=== PATIENT | female | born 1975 | race Caucasian/White ===

== ENCOUNTER 2018-05-03 16:09 | Observation (INO) ==
[2018-05-03] MEDS ORDERED: Isovue-370 500 ML INFUS..BTL IV ONE (16:54)
[2018-05-03] MEDS ORDERED: Ondansetron 4 MG/2 ML VIAL IVP ONE (16:55)
[2018-05-03] MEDS ORDERED: *HR* FentaNYL (PF) 100 MCG/2 ML VIAL IVP ONE (16:55)
[2018-05-03] MEDS ORDERED: Piperacillin/Tazobactam 3.375 GM in 0.9 % Sodium Chloride Mini Bag 100 ML IVPB ONE (16:59)
[2018-05-03 17:13] LABS: Basophils % 0.2 %; Hematocrit 43.9 % (35.3-44.9); Hemoglobin 13.9 g/dL (11.5-15.4); Immature Granulocytes % 0.6 % (0-4); Lymphocytes # 0.3 K/mcL (0.6-4.6); Lymphocytes % 2.3 %; Mean Corpuscular HGB Conc 31.7 g/dL (31.6-35.5); Mean Corpuscular Hemoglobin 25.5 pg (28.0-33.3); Mean Corpuscular Volume 80.6 fL (83.0-100.0); Monocytes # 0.4 K/mcL (0.0-1.3); Monocytes % 3.8 %; Neutrophils # 10.2 K/mcL (1.6-8.9); Platelet Count 361 K/mcL (140-400); Red Blood Count 5.45 M/mcL (3.82-4.97); Red Cell Distribution Width 14.3 % (11.5-14.5); Segmented Neutrophils % 93.1 %
[2018-05-03] MEDS: 0.9 % Sodium Chloride 1,000 ML IVC SCH ×3 (17:14→22:50)
[2018-05-03 17:38] LABS: Alanine Aminotransferase 11 Units/L (7-52); Albumin 4.1 g/dL (3.5-5.7); Albumin/Globulin Ratio 1.2 (1.1-2.2); Alkaline Phosphatase 101 Units/L (34-104); Aspartate Amino Transferase 9 Units/L (13-39); BUN/Creatinine Ratio 16 (6-26); Bilirubin,Direct 0.2 mg/dL (0.0-0.2); Bilirubin,Indirect 0.6 mg/dL (0.0-1.2); Bilirubin,Total 0.8 mg/dL (0.3-1.0); Blood Urea Nitrogen 12 mg/dL (6-20); Calcium 9.5 mg/dL (8.6-10.3); Carbon Dioxide 26 mEq/L (23-29); Chloride 101 mEq/L (98-107); Globulin 3.4 g/dL (2.4-3.5); Glucose 174 mg/dL (70-105); Lipase < 3 Units/L (11-82); Osmolality,Calculated 288 (280-300); Potassium 4.2 mEq/L (3.5-5.1); Sodium 137 mEq/L (136-145); Total Protein 7.5 g/dL (6.4-8.9); eGFR For African Americans > 60 (> 60); eGFR For Non-African Americans > 60 (> 60)
[2018-05-03] MEDS ORDERED: Pantoprazole 40 MG VIAL IVP ONE (17:40)
--- NOTE | 2018-05-03 17:46 | Emergency Department Note ---
Disposition Clinical Impression: History of Crohn's disease, Colitis Abdominal pain Qualifiers: Abdominal location: unspecified location Qualified Code(s): R10.9 - Unspecified abdominal pain Sepsis Qualifiers: Sepsis type: sepsis due to unspecified organism Qualified Code(s): A41.9 - Sepsis, unspecified organism Disposition: Admitted As Inpatient Condition: Fair Referrals: Kathie Dodge MD [Primary Care Provider] - Forms: ED Satisfaction Letter, Work/School Release Time of Disposition: 18:36 Abdominal Pain HPI - General Chief Complaint: ED Abdominal Pain Stated Complaint: CHrones flare up Time Seen by Provider: 05/03/18 16:47 Source: patient Mode of arrival: ambulatory Limitations: no limitations Nursing Notes Reviewed: Yes Vital Signs Reviewed: Yes - History of Present Illness HPI Narrative: 42-year-old female with history of Crohn's diagnosed 2 years ago presents for evaluation of abdominal pain. Patient reports abdominal pain 8 days. Notes it to be diffuse but primarily in the epigastric region. Is worse after eating. Patient states she has been taking Tylenol. Does not have any chronic Crohn's pain medication. Patient's also had fevers. Patient states over the past couple days she is having nausea vomiting. No significant diarrhea but has had mucousy stools. Patient denies any cough. Patient denies any chest pain. Denies any blood in her stool. Denies possibility of being . No hematuria or dysuria. Pain Scale: 3 - Related Data Home Medications Medication Instructions Recorded Confirmed Ibuprofen [Motrin] 400 - 800 mg PO DAILY PRN 06/26/16 08/07/16 LORazepam [Ativan] 0.5 - 1 mg PO BID PRN 06/26/16 08/07/16 Pantoprazole Sodium [Protonix] 40 mg PO DAILY 06/26/16 08/07/16 hydrOXYzine HCl [Hydroxyzine HCl] 12.5 - 25 mg PO DAILY PRN 07/30/16 08/07/16 Pentasa 11/13/17 Prozac 11/13/17 Previous Rx's Medication Instructions Recorded Ibuprofen 800 mg PO Q6-8H PRN #30 tablet 11/13/17 Allergies Allergy/AdvReac Type Severity Reaction Status Date / Time No Known Allergies Allergy Verified 11/13/17 15:39 All systems ED: reviewed and negative except as stated. Constitutional: Reports: fever Cardiovascular: Denies: chest pain Respiratory: Denies: cough, dyspnea Gastrointestinal: Reports: abdominal pain, nausea, vomiting. Denies: diarrhea Genitourinary: Denies: urgency, dysuria Abdominal Pain PMH - Past Medical History Medical history: Reports: non-contributory Psychiatric history: Reports: anxiety - Social History Smoking status: Never smoker Alcohol use: Reports: occasionally Drug use: Reports: none Physical Exam - General Limitations: no limitations General appearance: alert, in no apparent distress - Head Head exam: atraumatic, normocephalic, normal inspection - Eye Eye exam: Present: normal appearance, PERRL, EOMI - ENT ENT exam: normal exam, normal oropharynx, mucous membranes moist - Neck Neck exam: Present: normal inspection - Chest Chest inspection: Present: normal inspection, symmetric chest wall rise - Respiratory Respiratory exam: Present: normal lung sounds bilaterally. Absent: respiratory distress - Cardiovascular Cardiovascular exam: Present: normal rhythm, tachycardia. Absent: systolic murmur - Abdominal Exam Abdominal exam: Present: soft, tenderness. Absent: guarding, rebound - Extremities Exam Extremities exam: Present: normal inspection. Absent: pedal edema - Expanded Lower Extremity Exam Neurovascular/Tendon exam: Present: normal capillary refill - Back Exam Back exam: Present: normal inspection - Neurological Exam Neurological exam: Present: alert, oriented X3, CN II-XII intact - Skin Skin exam: Present: warm, dry, intact, normal color Course - Reevaluation(s) Reevaluation #1: Patient presented with concerns of sepsis with SIRS criteria. Patient also has a history of Crohn's. Patient had extensive evaluation with IV fluids. During the course of the ED stay the patient's heart rate did respond IV fluids. Patient received anti-medics and Protonix and appropriate pain control. Time: 18:35 Vital Signs Temperature 102.6 F H 05/03/18 16:09 Pulse Rate 134 05/03/18 16:09 Respiratory Rate 16 05/03/18 16:09 Blood Pressure 128/85 05/03/18 16:09 O2 Sat by Pulse Oximetry 96 05/03/18 16:09 Temperature 102.6 F H 05/03/18 16:09 Pulse Rate 99 05/03/18 17:26 Respiratory Rate 18 05/03/18 17:26 Blood Pressure 125/66 05/03/18 17:26 O2 Sat by Pulse Oximetry 94 05/03/18 17:27 Oxygen Delivery Oxygen Delivery Room Air Abdominal Pain - MDM Narrative Medical decision making narrative: Patient presented for concerns of sepsis history of Crohn's. Patient was started on empiric antibiotics for the most likely source immediately. Patient' s labs show no elevation of lactate no leukocytosis the patient did have a temperature was tachycardic. Responded to liters of fluid. Patient's abdomen is nonsurgical. On repeat evaluation the patient's pain improved. Patient was also given Tylenol. Given the patient's abnormal vitals with concerns of sepsis and history of Crohn's the patient will be admitted to hospital service for further evaluation and monitoring. Patient's CT is consistent with Crohn's with terminal ileitis. There are no abscesses or free air. Patient likely is suffering from an ileus the patient's been having bowel movements. - Lab Data Lab results reviewed: Yes I reviewed the patient's lab results. Result diagrams: 05/03/18 16:59 05/03/18 16:59 Lab Results 05/03/18 05/03/18 05/03/18 Range/Units 16:59 16:59 16:59 WBC 11.0 (4.3-11.1) K/mcL RBC 5.45 H (3.82-4.97) M/mcL Hgb 13.9 (11.5-15.4) g/dL Hct 43.9 (35.3-44.9) % MCV 80.6 L (83.0-100.0) fL MCH 25.5 L (28.0-33.3) pg MCHC 31.7 (31.6-35.5) g/dL RDW 14.3 (11.5-14.5) % Plt Count 361 (140-400) K/mcL MPV 9.0 L (9.4-12.4) fL Immature Gran % 0.6 (0-4) % Seg Neutrophils % 93.1 % Lymphocytes % 2.3 % Monocytes % 3.8 % Eosinophils % 0.0 % Basophils % 0.2 % Neutrophils # 10.2 H (1.6-8.9) K/mcL Lymphocytes # 0.3 L (0.6-4.6) K/mcL Monocytes # 0.4 (0.0-1.3) K/mcL Eosinophils # 0.0 (0.0-0.6) K/mcL Basophils # 0.0 (0.0-0.2) K/mcL Sodium 137 (136-145) mEq/L Potassium 4.2 (3.5-5.1) mEq/L Chloride 101 (98-107) mEq/L Carbon Dioxide 26 (23-29) mEq/L BUN 12 (6-20) mg/dL Creatinine 0.77 (0.60-1.20) mg/dL Est GFR ( Amer) > 60 (> 60) Est GFR (Non-Af Amer) > 60 (> 60) BUN/Creatinine Ratio 16 (6-26) Glucose 174 H (70-105) mg/dL Calculated Osmolality 288 (280-300) Lactic Acid 1.5 (0.5-2.2) mmol/L Calcium 9.5 (8.6-10.3) mg/dL Total Bilirubin 0.8 (0.3-1.0) mg/dL Direct Bilirubin 0.2 (0.0-0.2) mg/dL Indirect Bilirubin 0.6 (0.0-1.2) mg/dL AST 9 L (13-39) Units/L ALT 11 (7-52) Units/L Alkaline Phosphatase 101 (34-104) Units/L Serum Total Protein 7.5 (6.4-8.9) g/dL Albumin 4.1 (3.5-5.7) g/dL Globulin 3.4 (2.4-3.5) g/dL Albumin/Globulin Ratio 1.2 (1.1-2.2) Lipase < 3 L (11-82) Units/L Urine Color (Yellow) Urine Clarity (Clear) Urine pH (5.0-8.0) pH Units Ur Specific [place] (1.010-1.025) Urine Protein (Neg-Trace) mg/dL Urine Glucose (UA) (Normal) mg/dL Urine Ketones (Negative) mg/dL Urine Blood (Negative) Urine Nitrite (Negative) Urine Bilirubin (Negative) Urine Urobilinogen (Normal) mg/dL Ur Leukocyte Esterase (Negative) Urine Test (Negative) 05/03/18 05/03/18 Range/Units 18:06 18:09 WBC (4.3-11.1) K/mcL RBC (3.82-4.97) M/mcL Hgb (11.5-15.4) g/dL Hct (35.3-44.9) % MCV (83.0-100.0) fL MCH (28.0-33.3) pg MCHC (31.6-35.5) g/dL RDW (11.5-14.5) % Plt Count (140-400) K/mcL MPV (9.4-12.4) fL Immature Gran % (0-4) % Seg Neutrophils % % Lymphocytes % % Monocytes % % Eosinophils % % Basophils % % Neutrophils # (1.6-8.9) K/mcL Lymphocytes # (0.6-4.6) K/mcL Monocytes # (0.0-1.3) K/mcL Eosinophils # (0.0-0.6) K/mcL Basophils # (0.0-0.2) K/mcL Sodium (136-145) mEq/L Potassium (3.5-5.1) mEq/L Chloride (98-107) mEq/L Carbon Dioxide (23-29) mEq/L BUN (6-20) mg/dL Creatinine (0.60-1.20) mg/dL Est GFR ( Amer) (> 60) Est GFR (Non-Af Amer) (> 60) BUN/Creatinine Ratio (6-26) Glucose (70-105) mg/dL Calculated Osmolality (280-300) Lactic Acid (0.5-2.2) mmol/L Calcium (8.6-10.3) mg/dL Total Bilirubin (0.3-1.0) mg/dL Direct Bilirubin (0.0-0.2) mg/dL Indirect Bilirubin (0.0-1.2) mg/dL AST (13-39) Units/L ALT (7-52) Units/L Alkaline Phosphatase (34-104) Units/L Serum Total Protein (6.4-8.9) g/dL Albumin (3.5-5.7) g/dL Globulin (2.4-3.5) g/dL Albumin/Globulin Ratio (1.1-2.2) Lipase (11-82) Units/L Urine Color Dark Yellow (Yellow) Urine Clarity Turbid A (Clear) Urine pH 5.5 (5.0-8.0) pH Units Ur Specific [place] > 1.030 H (1.010-1.025) Urine Protein 30 H (Neg-Trace) mg/dL Urine Glucose (UA) Normal (Normal) mg/dL Urine Ketones Trace H (Negative) mg/dL Urine Blood Small H (Negative) Urine Nitrite Negative (Negative) Urine Bilirubin Small H (Negative) Urine Urobilinogen Normal (Normal) mg/dL Ur Leukocyte Esterase Small H (Negative) Urine Test Negative (Negative) - Radiology Data Radiology results reviewed: Yes I reviewed the patient's radiology results. Abdomen/Pelvis CT 05/03/18 16:54 IMPRESSION: 1. Circumferential wall thickening at the terminal ileum with surrounding inflammatory changes compatible with given history of inflammatory bowel disease/Crohn's. There is also a small amount of free fluid present within the pelvis. 2. Mild dilation of these small bowel proximal to the inflammatory changes at the terminal ileum suggesting partial small bowel obstruction versus ileus related to distal inflammatory changes. D/ / Vikash Durham MD / Vikash Durham MD Interpreting Provider: Vikash Durham MD Chest X-Ray 05/03/18 16:54 IMPRESSION: No acute process. D/ / Stef Traore MD / Stef Traore MD Interpreting Provider: Stef Traore MD - EKG Data EKG attestation: Yes I reviewed and interpreted this EKG. EKG shows normal: sinus rhythm Rate: tachycardia Rhythm: NSR [place]/QRS: left axis deviation When compared to previous EKG there are: no significant changes Interpretation: no acute changes, nonspecific ST-T wave changes S.B.A.R. - S.B.A.R. Situation: Demographics Background: Presenting Complaint Assessment: Vital Signs Recommendation: Barrier(s) to disposition, Recommendation based on pending studies, treatments, or consults S.B.A.RDonald Report Given to: Dr. Allegra Gonzales Repor Time: 18:32
[2018-05-03 18:20] LABS: Bilirubin,Urine Small (Negative); Blood,Urine Small (Negative); Clarity,Urine Turbid (Clear); Color,Urine Dark Yellow (Yellow); Glucose,Urine (UA) Normal (Normal); Ketones,Urine Trace mg/dL (Negative); Leukocyte Esterase,Urine Small (Negative); Nitrite,Urine Negative (Negative); PH,Urine 5.5 pH Units (5.0-8.0); Protein,Urine 30 mg/dL (Neg-Trace); Specific Gravity,Urine > 1.030 (1.010-1.025); Urobilinogen,Urine Normal (Normal)
[2018-05-03 18:24] LABS: Hyaline Casts,Urine Few per lpf (None-Few); RBC,Urine 0-3 per hpf (0-3); Squamous Epithelial Cell,Urine Many per lpf (None-Few)
[2018-05-03] MEDS ORDERED: Hyoscyamine 0.5 MG/ML MLS IVP ONE (18:37)
--- NOTE | 2018-05-03 18:42 | Emergency Department Note ---
Disposition Clinical Impression: History of Crohn's disease Abdominal pain Qualifiers: Abdominal location: unspecified location Qualified Code(s): R10.9 - Unspecified abdominal pain Sepsis Qualifiers: Sepsis type: sepsis due to unspecified organism Qualified Code(s): A41.9 - Sepsis, unspecified organism Disposition: Admitted As Inpatient Condition: Fair Referrals: Kathie Dodge MD [Primary Care Provider] - Forms: ED Satisfaction Letter, Work/School Release General Adult HPI - General Chief complaint: ED Abdominal Pain Stated complaint: CHrones flare up Time Seen by Provider: 05/03/18 16:47 Source: patient Mode of arrival: ambulatory Limitations: no limitations - History of Present Illness Pain Scale: 3 - Related Data Home Medications Medication Instructions Recorded Confirmed Ibuprofen [Motrin] 400 - 800 mg PO DAILY PRN 06/26/16 08/07/16 LORazepam [Ativan] 0.5 - 1 mg PO BID PRN 06/26/16 08/07/16 Pantoprazole Sodium [Protonix] 40 mg PO DAILY 06/26/16 08/07/16 hydrOXYzine HCl [Hydroxyzine HCl] 12.5 - 25 mg PO DAILY PRN 07/30/16 08/07/16 Pentasa 11/13/17 Prozac 11/13/17 Previous Rx's Medication Instructions Recorded Ibuprofen 800 mg PO Q6-8H PRN #30 tablet 11/13/17 Allergies Allergy/AdvReac Type Severity Reaction Status Date / Time No Known Allergies Allergy Verified 11/13/17 15:39 Constitutional: Reports: fever Cardiovascular: Denies: chest pain Respiratory: Denies: cough, dyspnea Gastrointestinal: Reports: abdominal pain, nausea, vomiting. Denies: diarrhea Genitourinary: Denies: urgency, dysuria Past Medical History - Past Medical History Medical history: Reports: non-contributory Surgical history: Reports: orthopedic, other Psychiatric history: Reports: anxiety - Social History Smoking Status: Never smoker Smokeless Tobacco Status: No Alcohol use: Reports: occasionally Drug use: Reports: none Physical Exam - General Limitations: no limitations General appearance: alert, in no apparent distress Course Vital Signs Temperature 102.6 F H 05/03/18 16:09 Pulse Rate 134 05/03/18 16:09 Respiratory Rate 16 05/03/18 16:09 Blood Pressure 128/85 05/03/18 16:09 O2 Sat by Pulse Oximetry 96 05/03/18 16:09 Temperature 102.6 F H 05/03/18 16:09 Pulse Rate 99 05/03/18 17:26 Respiratory Rate 18 05/03/18 17:26 Blood Pressure 125/66 05/03/18 17:26 O2 Sat by Pulse Oximetry 94 05/03/18 17:27 Oxygen Delivery Oxygen Delivery Room Air Medical Decision Making - Lab Data Result diagrams: 05/03/18 16:59 05/03/18 16:59 Lab Results 05/03/18 05/03/18 05/03/18 Range/Units 16:59 16:59 16:59 WBC 11.0 (4.3-11.1) K/mcL RBC 5.45 H (3.82-4.97) M/mcL Hgb 13.9 (11.5-15.4) g/dL Hct 43.9 (35.3-44.9) % MCV 80.6 L (83.0-100.0) fL MCH 25.5 L (28.0-33.3) pg MCHC 31.7 (31.6-35.5) g/dL RDW 14.3 (11.5-14.5) % Plt Count 361 (140-400) K/mcL MPV 9.0 L (9.4-12.4) fL Immature Gran % 0.6 (0-4) % Seg Neutrophils % 93.1 % Lymphocytes % 2.3 % Monocytes % 3.8 % Eosinophils % 0.0 % Basophils % 0.2 % Neutrophils # 10.2 H (1.6-8.9) K/mcL Lymphocytes # 0.3 L (0.6-4.6) K/mcL Monocytes # 0.4 (0.0-1.3) K/mcL Eosinophils # 0.0 (0.0-0.6) K/mcL Basophils # 0.0 (0.0-0.2) K/mcL Sodium 137 (136-145) mEq/L Potassium 4.2 (3.5-5.1) mEq/L Chloride 101 (98-107) mEq/L Carbon Dioxide 26 (23-29) mEq/L BUN 12 (6-20) mg/dL Creatinine 0.77 (0.60-1.20) mg/dL Est GFR ( Amer) > 60 (> 60) Est GFR (Non-Af Amer) > 60 (> 60) BUN/Creatinine Ratio 16 (6-26) Glucose 174 H (70-105) mg/dL Calculated Osmolality 288 (280-300) Lactic Acid 1.5 (0.5-2.2) mmol/L Calcium 9.5 (8.6-10.3) mg/dL Total Bilirubin 0.8 (0.3-1.0) mg/dL Direct Bilirubin 0.2 (0.0-0.2) mg/dL Indirect Bilirubin 0.6 (0.0-1.2) mg/dL AST 9 L (13-39) Units/L ALT 11 (7-52) Units/L Alkaline Phosphatase 101 (34-104) Units/L Serum Total Protein 7.5 (6.4-8.9) g/dL Albumin 4.1 (3.5-5.7) g/dL Globulin 3.4 (2.4-3.5) g/dL Albumin/Globulin Ratio 1.2 (1.1-2.2) Lipase < 3 L (11-82) Units/L Urine Color (Yellow) Urine Clarity (Clear) Urine pH (5.0-8.0) pH Units Ur Specific [place] (1.010-1.025) Urine Protein (Neg-Trace) mg/dL Urine Glucose (UA) (Normal) mg/dL Urine Ketones (Negative) mg/dL Urine Blood (Negative) Urine Nitrite (Negative) Urine Bilirubin (Negative) Urine Urobilinogen (Normal) mg/dL Ur Leukocyte Esterase (Negative) Urine Test (Negative) 05/03/18 05/03/18 Range/Units 18:06 18:09 WBC (4.3-11.1) K/mcL RBC (3.82-4.97) M/mcL Hgb (11.5-15.4) g/dL Hct (35.3-44.9) % MCV (83.0-100.0) fL MCH (28.0-33.3) pg MCHC (31.6-35.5) g/dL RDW (11.5-14.5) % Plt Count (140-400) K/mcL MPV (9.4-12.4) fL Immature Gran % (0-4) % Seg Neutrophils % % Lymphocytes % % Monocytes % % Eosinophils % % Basophils % % Neutrophils # (1.6-8.9) K/mcL Lymphocytes # (0.6-4.6) K/mcL Monocytes # (0.0-1.3) K/mcL Eosinophils # (0.0-0.6) K/mcL Basophils # (0.0-0.2) K/mcL Sodium (136-145) mEq/L Potassium (3.5-5.1) mEq/L Chloride (98-107) mEq/L Carbon Dioxide (23-29) mEq/L BUN (6-20) mg/dL Creatinine (0.60-1.20) mg/dL Est GFR ( Amer) (> 60) Est GFR (Non-Af Amer) (> 60) BUN/Creatinine Ratio (6-26) Glucose (70-105) mg/dL Calculated Osmolality (280-300) Lactic Acid (0.5-2.2) mmol/L Calcium (8.6-10.3) mg/dL Total Bilirubin (0.3-1.0) mg/dL Direct Bilirubin (0.0-0.2) mg/dL Indirect Bilirubin (0.0-1.2) mg/dL AST (13-39) Units/L ALT (7-52) Units/L Alkaline Phosphatase (34-104) Units/L Serum Total Protein (6.4-8.9) g/dL Albumin (3.5-5.7) g/dL Globulin (2.4-3.5) g/dL Albumin/Globulin Ratio (1.1-2.2) Lipase (11-82) Units/L Urine Color Dark Yellow (Yellow) Urine Clarity Turbid A (Clear) Urine pH 5.5 (5.0-8.0) pH Units Ur Specific [place] > 1.030 H (1.010-1.025) Urine Protein 30 H (Neg-Trace) mg/dL Urine Glucose (UA) Normal (Normal) mg/dL Urine Ketones Trace H (Negative) mg/dL Urine Blood Small H (Negative) Urine Nitrite Negative (Negative) Urine Bilirubin Small H (Negative) Urine Urobilinogen Normal (Normal) mg/dL Ur Leukocyte Esterase Small H (Negative) Urine Test Negative (Negative) Attestation Statement - Attestation Attestation: I examined this patient and my medical decision-making was reviewed with the Resident Physician. I agree with the documented findings, disposition and treatment plan as described except to the extent set forth below. 42 year old female presnte to the ED with complaints with of tachycardia and weakness and states that she also has crohns flare up and it appears she likley has an infectious colitis. WE will start IV ABX and IVF and start sepsis workup and admit to medicine. Re-evaluation shows improvemnt of hr from 130 to 99 and afberile now.
[2018-05-03 18:43] LABS: Oval Fat Bodies,Urine Present (Not Present)
[2018-05-03 18:44] LABS: Mucus,Urine Moderate (Few)
[2018-05-03 18:45] LABS: Bacteria,Urine Moderate per hpf (None-Few)
[2018-05-03] MEDS ORDERED: *HR* HYDROcodone/Acet 5/325 mg TABLET PO PRN (21:08)
[2018-05-03] MEDS ORDERED: Naloxone 0.4 MG/ML INJ IVP PRN (21:08)
[2018-05-03 21:33] LABS: INR 1.1; Prothrombin Time 12.8 Seconds (9.4-12.1)
[2018-05-03 21:35] LABS: Activated Partial Thrombo Time 28.9 Seconds (26.0-36.0)
--- NOTE | 2018-05-03 22:28 | Internal Med History&Physical ---
Date of Encounter: 05/03/18 Time of Encounter: 22:27 Internal Medicine - H&P: HPI Chief complaint: Abdominal pain History of present illness: Ms. Hernandez is a 42 year old female with history of Crohn's diagnosed 2 years ago presents for evaluation of abdominal pain. Patient reports a week history of diffuse epigastric abdominal pain associated with fever,nausea and vomiting. On presentation, she was tachycardic, however responded to liters of fluid. Patient's CT is consistent with Crohn's with terminal ileitis. There are no abscesses or free air. She was admitted for further evaluation. Past Med Surg Social Fam HX - Past Medical History Medical history: non-contributory Additional medical history: Crohn's disease Psychiatric history: anxiety, depression - Past Surgical History Surgical History: orthopedic, other Additional surgical history: bilateral carpal tunnel surgery. - Social History Smoking Status: Never smoker Smokeless Tobacco Status: No Alcohol use: occasionally Drug use: none - Family History Mother Living Status: Age at : 65 Hx Family Cancer: Yes (lung cancer and colon cancer) Internal Medicine - H&P: Meds Ibuprofen [Motrin] 400 - 800 mg PO DAILY PRN 06/26/16 [History] LORazepam [Ativan] 0.5 - 1 mg PO BID PRN 06/26/16 [History] Pantoprazole Sodium [Protonix] 40 mg PO DAILY 06/26/16 [History] hydrOXYzine HCl [Hydroxyzine HCl] 12.5 - 25 mg PO DAILY PRN 07/30/16 [History] Ibuprofen 800 mg PO Q6-8H PRN #30 tablet 11/13/17 [Rx] Pentasa 11/13/17 [History] Prozac 11/13/17 [History] 3 Allergy/AdvReac Type Severity Reaction Status Date / Time No Known Allergies Allergy Verified 11/13/17 15:39 All Systems PM: A 10-system review of systems was performed and is negative for pertinent findings except as documented above in the HPI. - Constitutional Vitals: Temp Pulse Resp BP Pulse Ox 102.6 F H 98 17 107/70 95 05/03/18 16:09 05/03/18 20:15 05/03/18 20:15 05/03/18 20:15 05/03/18 20:15 Internal Med - H&P Results - Labs CBC & Chem 7: 05/03/18 16:59 05/03/18 16:59 - Assessment and plan (1) Abdominal pain Current Visit: Yes Status: Acute Assessment and plan: ASSESSMENT: - Abdominal pain due to Ileitis PLAN: - clear liquid diet - IVF ns 125 cc/hr x 2 L - ABS - GI consult - CBCD, CMP in AM Qualifiers: Abdominal location: unspecified location Qualified Code(s): R10.9 - Unspecified abdominal pain (2) History of Crohn's disease Current Visit: Yes Status: Acute Assessment and plan: GI consult for further evaluation - Time Spent With Patient Total time spent is greater than 50% in coordination of care (as documented) at patient's floor/unit and/or counseling patient:
[2018-05-03] MEDS: Ondansetron 4 MG/2 ML VIAL IVP PRN (22:56)
[2018-05-04] MEDS ORDERED: Ondansetron 4 MG/2 ML VIAL IVP SCH
[2018-05-04] MEDS: 0.9 % Sodium Chloride 1,000 ML IVC SCH (06:15)
[2018-05-04] MEDS: Ondansetron 4 MG/2 ML VIAL IVP PRN ×2 (06:16→16:36)
[2018-05-04] MEDS: Piperacillin/Tazobactam 3.375 GM in 0.9 % Sodium Chloride Mini Bag 100 ML IVPB SCH ×2 (08:31→16:36)
[2018-05-04 08:52] LABS: Hematocrit 37.1 % (35.3-44.9); Mean Corpuscular Hemoglobin 25.2 pg (28.0-33.3); Mean Corpuscular Volume 81.4 fL (83.0-100.0); Mean Platelet Volume 9.2 fL (9.4-12.4); Platelet Count 290 K/mcL (140-400); Red Blood Count 4.56 M/mcL (3.82-4.97); Red Cell Distribution Width 14.4 % (11.5-14.5)
[2018-05-04 08:59] LABS: Hemoglobin 11.5 g/dL (11.5-15.4)
[2018-05-04 09:05] LABS: Alanine Aminotransferase 10 Units/L (7-52); Albumin 3.3 g/dL (3.5-5.7); Albumin/Globulin Ratio 1.2 (1.1-2.2); Alkaline Phosphatase 76 Units/L (34-104); Aspartate Amino Transferase 9 Units/L (13-39); BUN/Creatinine Ratio 15 (6-26); Bilirubin,Total 0.8 mg/dL (0.3-1.0); Blood Urea Nitrogen 10 mg/dL (6-20); Calcium 8.2 mg/dL (8.6-10.3); Carbon Dioxide 28 mEq/L (23-29); Chloride 103 mEq/L (98-107); Chol/HDL Ratio 4.6 (0-4.9); Cholesterol 134 mg/dL (< 200); Globulin 2.8 g/dL (2.4-3.5); Glucose 170 mg/dL (70-105); HDL Cholesterol 29 mg/dL (40-59); LDL Cholesterol,Calculated 80 mg/dL (0-99); Magnesium 1.9 mg/dL (1.6-2.6); Osmolality,Calculated 285 (280-300); Phosphorous 2.4 mg/dL (2.7-4.5); Potassium 3.9 mEq/L (3.5-5.1); Sodium 136 mEq/L (136-145); Total Protein 6.1 g/dL (6.4-8.9); Triglycerides 126 mg/dL (< 150); eGFR For African Americans > 60 (> 60); eGFR For Non-African Americans > 60 (> 60)
--- NOTE | 2018-05-04 11:14 | Internal Med Progress Note ---
Date of Encounter: 05/04/18 Time of Encounter: 11:10 - Assessment and plan (1) Abdominal pain Current Visit: Yes Status: Acute Assessment and plan: Abdominal pain nausea vomiting is likely from Crohn's disease exacerbation. CT scan shows terminal ileitis.. Mild dilation of these small bowel proximal to the inflammatory changes at the terminal ileum suggesting partial small bowel obstruction versus ileus related to distal inflammatory changes Continue clear diet, IV Zofran for nausea. Await for GI consult Qualifiers: Abdominal location: upper abdomen, unspecified Qualified Code(s): R10.10 - Upper abdominal pain, unspecified (2) Sepsis Current Visit: Yes Status: Acute Assessment and plan: Patient had a fever 102.6 on admission Chaim to 134, is likely from GI infection continue IV Zosyn and a fragyl Culture negative so far Qualifiers: Sepsis type: sepsis due to unspecified organism Qualified Code(s): A41.9 - Sepsis, unspecified organism (3) Depression Current Visit: Yes Status: Acute Assessment and plan: Depression anxiety continue Prozac Qualifiers: Depression Type: major depressive disorder Major depression recurrence: unspecified whether recurrent Major depression episode severity: unspecified Qualified Code(s): F32.9 - Major depressive disorder, single episode, unspecified (4) GERD (gastroesophageal reflux disease) Current Visit: Yes Status: Chronic Assessment and plan: Continue PPI Qualifiers: Esophagitis presence: without esophagitis Qualified Code(s): K21.9 - Gastro -esophageal reflux disease without esophagitis (5) History of Crohn's disease Current Visit: Yes Status: Acute Assessment and plan: Was diagnosed 2 years ago on pentasa, currently unable to tolerate pentasa - Time Spent With Patient Total time spent is greater than 50% in coordination of care (as documented) at patient's floor/unit and/or counseling patient: - Subjective Interval history: Ms. Hernandez is a 42 year old female with history of Crohn's diagnosed 2 years ago presents for evaluation of abdominal pain. Patient reports a week history of diffuse epigastric abdominal pain associated with fever,nausea and vomiting. On presentation, she was tachycardic, however responded to liters of fluid. Patient's CT is consistent with Crohn's with terminal ileitis. There are no abscesses or free air. She was admitted for further evaluation. She was on pentasa, but unable to keep it down due to nausea. patient follows up with Dr Esquivel as Op. her abdominal pain is improved /, nuasea improved. contineu iV ATB, IVF, pending GI consult - Constitutional Vitals: Temp Pulse Resp BP Pulse Ox 99.9 F H 78 14 111/62 95 05/04/18 10:54 05/04/18 10:54 05/04/18 10:54 05/04/18 10:54 05/04/18 10:54 General appearance: Present: A&O X 3, obese, answers questions appropriately Exam: CONSTITUTIONAL: patient appears as an age appropriate female in no acute distress. EYES Clear sclerae, bilateral pupils are equal, reactive to light. EMOI. RESPIRATORY: No accessory muscle use, bilateral clear to auscultation, no wheezing, no crackles/rales. CARDIOVASCULAR: Regular heart rate, normal S1 and S2, no murmurs GASTROINTESTINAL: bowel sounds present, soft, mild tenderness to upper abdomen, no rebound MUSCULOSKELETAL: Joints in normal range of motion, no clubbing, no edema, no cyanosis. Bilateral peripheral pulses 2+. NEUROLOGIC: CN II to XII are grossly intact, no focal neurological deficit. Internal Medicine: Result - Labs CBC & Chem 7: 05/04/18 08:23 05/04/18 08:23 Labs: Short CBC 05/04/18 Range/Units 08:23 WBC 5.2 D (4.3-11.1) K/mcL Hgb 11.5 D (11.5-15.4) g/dL Hct 37.1 (35.3-44.9) % Plt Count 290 (140-400) K/mcL BMP 05/04/18 08:23 Sodium 136 Potassium 3.9 Chloride 103 Carbon Dioxide 28 BUN 10 Creatinine 0.67 Glucose 170 H Calcium 8.2 L Liver Function 05/04/18 Range/Units 08:23 Total Bilirubin 0.8 (0.3-1.0) mg/dL AST 9 L (13-39) Units/L ALT 10 (7-52) Units/L Alkaline Phosphatase 76 (34-104) Units/L Albumin 3.3 L (3.5-5.7) g/dL - ABG Interpretation ABG results: PT/INR, D-dimer PT 12.8 Seconds (9.4-12.1) H 05/03/18 16:59 Consult Discharge Plan - Plan Referrals: Kathie Dodge MD [Primary Care Provider] -
[2018-05-04] MEDS: MetroNIDAZOLE 500 MG/100 ML 500 MG/100 ML BAG IVPB SCH ×2 (11:31→18:36)
[2018-05-04] MEDS: Acetaminophen 325 MG TABLET PO PRN ×2 (11:31→20:29)
[2018-05-04] MEDS: FLUoxetine 20 MG CAPSULE PO SCH (11:31)
[2018-05-05] MEDS: MetroNIDAZOLE 500 MG/100 ML 500 MG/100 ML BAG IVPB SCH ×6 (01:29→21:37)
[2018-05-05] MEDS: Piperacillin/Tazobactam 3.375 GM in 0.9 % Sodium Chloride Mini Bag 100 ML IVPB SCH ×3 (01:29→17:25)
[2018-05-05] MEDS: Ondansetron 4 MG/2 ML VIAL IVP PRN (05:05)
[2018-05-05 05:07] LABS: Basophils % 0.4 %; Eosinophils % 0.9 %; Hematocrit 35.2 % (35.3-44.9); Hemoglobin 10.9 g/dL (11.5-15.4); Immature Granulocytes % 0.9 % (0-4); Lymphocytes # 0.9 K/mcL (0.6-4.6); Lymphocytes % 18.2 %; Mean Corpuscular Hemoglobin 25.3 pg (28.0-33.3); Mean Corpuscular Volume 81.9 fL (83.0-100.0); Mean Platelet Volume 8.9 fL (9.4-12.4); Monocytes # 0.5 K/mcL (0.0-1.3); Monocytes % 10.5 %; Neutrophils # 3.2 K/mcL (1.6-8.9); Platelet Count 241 K/mcL (140-400); Red Cell Distribution Width 14.2 % (11.5-14.5); Segmented Neutrophils % 69.1 %
[2018-05-05 05:36] LABS: Alanine Aminotransferase 15 Units/L (7-52); Albumin 3.2 g/dL (3.5-5.7); Albumin/Globulin Ratio 1.3 (1.1-2.2); Alkaline Phosphatase 77 Units/L (34-104); Aspartate Amino Transferase 13 Units/L (13-39); BUN/Creatinine Ratio 11 (6-26); Bilirubin,Direct 0.2 mg/dL (0.0-0.2); Bilirubin,Indirect 0.3 mg/dL (0.0-1.2); Bilirubin,Total 0.5 mg/dL (0.3-1.0); Blood Urea Nitrogen 8 mg/dL (6-20); Calcium 8.5 mg/dL (8.6-10.3); Carbon Dioxide 30 mEq/L (23-29); Chloride 104 mEq/L (98-107); Globulin 2.4 g/dL (2.4-3.5); Glucose 128 mg/dL (70-105); Magnesium 2.2 mg/dL (1.6-2.6); Osmolality,Calculated 288 (280-300); Potassium 3.8 mEq/L (3.5-5.1); Sodium 139 mEq/L (136-145); Total Protein 5.6 g/dL (6.4-8.9); eGFR For African Americans > 60 (> 60); eGFR For Non-African Americans > 60 (> 60)
[2018-05-05] MEDS: FLUoxetine 20 MG CAPSULE PO SCH (09:31)
[2018-05-05] MEDS: Acetaminophen 325 MG TABLET PO PRN (12:06)
--- NOTE | 2018-05-05 13:32 | Gastroenterology Consult Note ---
Date of Encounter: 05/05/18 Time of Encounter: 13:28 - Assessment and plan (1) Abdominal pain Current Visit: Yes Status: Acute Assessment and plan: - Likely secondary to Crohn's disease flare - Patient reports worsening of diet after recent trip - Patient reports markedly improved symptoms since being admitted - No home Crohns meds per patient and chart - Tolerating diet Plan - Continue supportive care - Obtain GI panel to rule out exacerbating infection - Start prednisone 40mg daily - Continue flagyl, zosyn Qualifiers: Abdominal location: upper abdomen, unspecified Qualified Code(s): R10.10 - Upper abdominal pain, unspecified (2) History of Crohn's disease Current Visit: Yes Status: Acute Assessment and plan: - as above for abdominal pain (3) GERD (gastroesophageal reflux disease) Current Visit: Yes Status: Chronic Assessment and plan: - Continue PPI Qualifiers: Esophagitis presence: without esophagitis Qualified Code(s): K21.9 - Gastro -esophageal reflux disease without esophagitis - Time Spent With Patient Total time spent is greater than 50% in coordination of care (as documented) at patient's floor/unit and/or counseling patient: GI History of Present Illness - Data of Consult Patient: known to practice within the last 3 years Consult date: 05/05/18 Requesting Physician: Arlin Bahena MD - Consult Narrative Reason for consult: Crohn's flare History of present illness: Ms. Hernandez is a 42 year old female with past medical history of Crohn's disease diagnosed 2 years ago presents to emergency room with complaint of abdominal pain, nausea, vomiting. Patient states that she was visiting [place] this past weekend and has been eating a lot of greasy foods. Her Crohn's has been relatively well controlled up until this point with no previous hospitalizations admissions. She does follow with Dr. Esquivel as an outpatient. She states she has had intermittent cramping, dull abdominal pain in a band across the upper abdomen. She also admits to nausea without vomiting which is relieved by Zofran. She also admits to recurrent loose bowel movements approximately 15 per day. She denies any blood in vomit or bowel movements. Today during time of exam, patient states that overall she is feeling much better. Her only complaint at this time is some nausea when she attempts to eat. She believes that at this time she could handle the rest for symptoms if she could have some Zofran at discharge. She states she has had approximately 3 -4 bowel movements a far this morning but her pain is relieved. She was noted to be septic at time of presentation with a fever 102.6 and a heart rate of 134. CT scan time of admission showed findings consistent with terminal ileitis consistent with Crohn's flare. She was started on Zosyn and Flagyl. Vital signs since normalized. Most recent endoscopies on 12/05/16 which showed multiple ulcers and inflammation in the terminal ileum consistent with Crohn's disease. Past Med Surg Social Fam HX - Past Medical History Medical history: non-contributory Additional medical history: Crohn's disease Psychiatric history: anxiety, depression - Past Surgical History Surgical History: orthopedic, other Additional surgical history: bilateral carpal tunnel surgery. - Social History Smoking Status: Never smoker Smokeless Tobacco Status: No Alcohol use: occasionally Drug use: none - Family History Mother Living Status: Age at : 65 Hx Family Cancer: Yes (lung cancer and colon cancer) - Gastrointestinal Gastrointestinal: Present: abdominal pain, change in bowel habits, diarrhea, nausea. Absent: bloating, coffee ground emesis, constipation, hematemesis, hematochezia, melena, vomiting - Constitutional Constitutional: fever(s), no anorexia - Cardiovascular Cardiovascular ROS: Absent: chest pain - Respiratory Respiratory IM: Absent: dyspnea - Neurological ROS Neurological GI: Absent: confusion, dizziness - Integumentary Integumentary GI: Absent: rash - Constitutional Vitals: Temp Pulse Resp BP Pulse Ox 98.8 F 62 14 130/73 97 05/05/18 12:05 05/05/18 12:05 05/05/18 12:05 05/05/18 12:05 05/05/18 12:05 Exam: Gen.: Vitals noted. No acute distress. AAOx3 HEENT: PERRL/EOMI, oropharynx clear, Normocephalic, atraumatic, MMM Cardiac: RRR, no murmur, +S1/S2 Pulmonary: CTA bilaterally, no wheezes, rales or rhonchi, equal chest expansion Abdomen: soft, mildly tender to palpation and epigastric and left upper quadrant , BS noted, no guarding, no rebound. MSK: ROM intact, no joint swelling noted Extremities: no BLE edema, nontender calf, no cyanosis or clubbing Neuro: A&Ox3, moves all extremities, no focal deficits Psych: Appropriate mood and behavior Results - Labs CBC & Chem 7: 05/05/18 04:39 05/05/18 04:39 Labs: Last Result Calcium 8.5 mg/dL (8.6-10.3) L 05/05/18 04:39 Triglycerides 126 mg/dL (< 150) 05/04/18 08:23 Entire Visit Hgb 10.9 g/dL (11.5-15.4) L 05/05/18 04:39 Hct 35.2 % (35.3-44.9) L 05/05/18 04:39 PT 12.8 Seconds (9.4-12.1) H 05/03/18 16:59 Total Bilirubin 0.5 mg/dL (0.3-1.0) 05/05/18 04:39 AST 13 Units/L (13-39) 05/05/18 04:39 ALT 15 Units/L (7-52) 05/05/18 04:39 Lipase < 3 Units/L (11-82) L 05/03/18 16:59 - ABG ABG results: PT/INR, D-dimer PT 12.8 Seconds (9.4-12.1) H 05/03/18 16:59 Consult Discharge Plan - Plan Referrals: Kathie Dodge MD [Primary Care Provider] -
--- NOTE | 2018-05-05 15:44 | Electrocardiograph Report ---
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
--- NOTE | 2018-05-05 16:35 | Internal Med Progress Note ---
Date of Encounter: 05/05/18 Time of Encounter: 16:32 - Assessment and plan (1) Abdominal pain Current Visit: Yes Status: Acute Assessment and plan: Abdominal pain nausea vomiting is likely from Crohn's disease exacerbation. CT scan shows terminal ileitis.. Mild dilation of these small bowel proximal to the inflammatory changes at the terminal ileum suggesting partial small bowel obstruction versus ileus related to distal inflammatory changes IV Zofran for nausea. Await for GI consult advance to full liquids, since her pain and nausea improved conitnue iV ATB Qualifiers: Abdominal location: upper abdomen, unspecified Qualified Code(s): R10.10 - Upper abdominal pain, unspecified (2) Sepsis Current Visit: Yes Status: Acute Assessment and plan: Patient had a fever 102.6 on admission Chaim to 134, is likely from GI infection continue IV Zosyn and a fragyl Qualifiers: Sepsis type: sepsis due to unspecified organism Qualified Code(s): A41.9 - Sepsis, unspecified organism (3) Depression Current Visit: Yes Status: Acute Assessment and plan: Depression anxiety continue Prozac Qualifiers: Depression Type: major depressive disorder Major depression recurrence: unspecified whether recurrent Major depression episode severity: unspecified Qualified Code(s): F32.9 - Major depressive disorder, single episode, unspecified (4) GERD (gastroesophageal reflux disease) Current Visit: Yes Status: Chronic Assessment and plan: continue omeprazole daily Qualifiers: Esophagitis presence: without esophagitis Qualified Code(s): K21.9 - Gastro -esophageal reflux disease without esophagitis (5) History of Crohn's disease Current Visit: Yes Status: Acute - Time Spent With Patient Total time spent is greater than 50% in coordination of care (as documented) at patient's floor/unit and/or counseling patient: 25 - 35 minutes - Subjective Interval history: Ms. Hernandez is a 42 year old female with history of Crohn's diagnosed 2 years ago presents for evaluation of abdominal pain. Patient reports a week history of diffuse epigastric abdominal pain associated with fever,nausea and vomiting. On presentation, she was tachycardic, however responded to liters of fluid. Patient's CT is consistent with Crohn's with terminal ileitis. There are no abscesses or free air. She was admitted for further evaluation. She was on pentasa, but unable to keep it down due to nausea. patient follows up with Dr Esquivel as Op. her abdominal pain is improved /, nuasea improved. contineu iV ATB, IVF, pending GI consult Patient has been doing well, afebrile, normal WBC. She has been tolerating liquid diet. Abdominal pain improved, nausea also improved and she would like to advance diet will advance to full liquid. - Constitutional Vitals: Temp Pulse Resp BP Pulse Ox 98.8 F 62 14 130/73 97 05/05/18 12:05 05/05/18 12:05 05/05/18 12:05 05/05/18 12:05 05/05/18 12:05 General appearance: Present: A&O X 3, obese, answers questions appropriately Exam: CONSTITUTIONAL: patient appears as an age appropriate female in no acute distress. EYES Clear sclerae, bilateral pupils are equal, reactive to light. EMOI. RESPIRATORY: No accessory muscle use, bilateral clear to auscultation, no wheezing, no crackles/rales. CARDIOVASCULAR: Regular heart rate, normal S1 and S2, no murmurs GASTROINTESTINAL: bowel sounds present, soft, no tenderness. MUSCULOSKELETAL: Joints in normal range of motion, no clubbing, no edema, no cyanosis. Bilateral peripheral pulses 2+. NEUROLOGIC: CN II to XII are grossly intact, no focal neurological deficit. Internal Medicine: Result - Labs CBC & Chem 7: 05/05/18 04:39 05/05/18 04:39 Labs: Short CBC 05/05/18 Range/Units 04:39 WBC 4.7 (4.3-11.1) K/mcL Hgb 10.9 L (11.5-15.4) g/dL Hct 35.2 L (35.3-44.9) % Plt Count 241 (140-400) K/mcL Neutrophils # 3.2 (1.6-8.9) K/mcL BMP 05/05/18 04:39 Sodium 139 Potassium 3.8 Chloride 104 Carbon Dioxide 30 H BUN 8 Creatinine 0.73 Glucose 128 H Calcium 8.5 L Liver Function 05/05/18 Range/Units 04:39 Total Bilirubin 0.5 (0.3-1.0) mg/dL Direct Bilirubin 0.2 (0.0-0.2) mg/dL AST 13 (13-39) Units/L ALT 15 (7-52) Units/L Alkaline Phosphatase 77 (34-104) Units/L Albumin 3.2 L (3.5-5.7) g/dL - ABG Interpretation ABG results: PT/INR, D-dimer PT 12.8 Seconds (9.4-12.1) H 05/03/18 16:59 Consult Discharge Plan - Plan Referrals: Kathie Dodge MD [Primary Care Provider] -
[2018-05-05] MEDS: predniSONE 20 MG TABLET PO SCH (21:36)
[2018-05-05 22:26] LABS: Adenovirus F 40/41 PCR Not detected (Not detect); Astrovirus PCR Not detected (Not detect); C.difficile Toxin A/B by PCR Not detected (Not detect); Campylobacter by PCR Not detected (Not detect); Cryptosporidium by PCR Not detected (Not detect); Cyclospora cayetanensis PCR Not detected (Not detect); Entamoeba histolytica PCR Not detected (Not detect); Enteroaggregative E.coli(EAEC) Not detected (Not detect); Enteropathogenic E.coli(EPEC) Not detected (Not detect); Enterotoxigenic E.coli (ETEC) Not detected (Not detect); Giardia lamblia PCR Not detected (Not detect); Norovirus GI/GII PCR Not detected (Not detect); Plesiomonas shigelloides PCR Not detected (Not detect); Rotavirus A PCR Not detected (Not detect); Salmonella PCR Not detected (Not detect); Sapovirus PCR Not detected (Not detect); Shig/EnteroinvasiveE coli EIEC Not detected (Not detect); Shigalike tox-prod E coli STEC Not detected (Not detect); Vibrio PCR Not detected (Not detect); Vibrio cholerae PCR Not detected (Not detect); Yersinia enterocolitica PCR Not detected (Not detect)
[2018-05-06] MEDS: MetroNIDAZOLE 500 MG/100 ML 500 MG/100 ML BAG IVPB SCH ×2 (03:22→08:46)
[2018-05-06 07:18] LABS: Basophils % 0.2 %; Hematocrit 38.8 % (35.3-44.9); Hemoglobin 11.6 g/dL (11.5-15.4); Immature Granulocytes % 0.8 % (0-4); Lymphocytes # 0.7 K/mcL (0.6-4.6); Mean Corpuscular HGB Conc 29.9 g/dL (31.6-35.5); Mean Corpuscular Hemoglobin 24.6 pg (28.0-33.3); Mean Corpuscular Volume 82.2 fL (83.0-100.0); Mean Platelet Volume 9.3 fL (9.4-12.4); Monocytes # 0.2 K/mcL (0.0-1.3); Monocytes % 3.7 %; Neutrophils # 4.2 K/mcL (1.6-8.9); Platelet Count 277 K/mcL (140-400); Red Blood Count 4.72 M/mcL (3.82-4.97); Red Cell Distribution Width 14.1 % (11.5-14.5); Segmented Neutrophils % 82.3 %
[2018-05-06 07:41] LABS: BUN/Creatinine Ratio 12 (6-26); Blood Urea Nitrogen 8 mg/dL (6-20); Calcium 9.1 mg/dL (8.6-10.3); Carbon Dioxide 30 mEq/L (23-29); Chloride 103 mEq/L (98-107); Glucose 156 mg/dL (70-105); Osmolality,Calculated 292 (280-300); Sodium 140 mEq/L (136-145); eGFR For African Americans > 60 (> 60); eGFR For Non-African Americans > 60 (> 60)
[2018-05-06] MEDS: FLUoxetine 20 MG CAPSULE PO SCH (08:45)
[2018-05-06] MEDS: Piperacillin/Tazobactam 3.375 GM in 0.9 % Sodium Chloride Mini Bag 100 ML IVPB SCH ×2 (08:46)
[2018-05-06] MEDS: predniSONE 20 MG TABLET PO SCH (08:46)
[2018-05-06 11:33] VITALS: BP 122/74
--- NOTE | 2018-05-06 15:48 | Discharge Summary ---
- NOTES TO OUTPATIENT PROVIDER Notes to Outpatient Provider: Admitted for Crohn's flare up. Discharged on cipro /flagyl/prednisone till GI follow up next week. Orders not resulted at time of discharge: Pending orders 05/03/18 21:08 Urinalysis reflex Microscopic [URIN] Routine Date of Encounter: 05/06/18 Time of Encounter: 12:55 - Discharge Diagnosis (1) Abdominal pain Priority: Primary Status: Acute Qualifiers: Abdominal location: upper abdomen, unspecified Qualified Code(s): R10.10 - Upper abdominal pain, unspecified (2) History of Crohn's disease Priority: Secondary Status: Acute (3) GERD (gastroesophageal reflux disease) Priority: Secondary Status: Chronic Qualifiers: Esophagitis presence: without esophagitis Qualified Code(s): K21.9 - Gastro -esophageal reflux disease without esophagitis Hospital course: Ms. Hernandez is a 42 year old female with history of Crohn's disease presented to the ED on 05/03 with complaint of abdominal pain, nausea, vomiting. Associated with recurrent loose bowel movements approximately 15 per day. She denies any blood in vomit or bowel movements. CT showed terminal ileitis and she was treated for Crohn's flare up with steroids. She was also given IV Abx due to concern for infectious etiology as she had elevated WBC and fever. She was seen by GI and had dramatic improvement in her symptoms while on steroids. She wanted to be discharged home on 05/06 and after discussing her case with GI over the phone, the decision was made to send her home on PO cipro/flagyl along with PO prednisone 40mg until she follows up with Dr. Esquivel as an outpatient next week. She was provided with 14 day script for the meds in case her appointment is delayed. Discharge discussed with: patient - Time Spent with Patient Total time spent providing and/or coordinating discharge services: Greater than 30 minutes - Discharge Medications Prescriptions: Ciprofloxacin [Cipro] 500 mg PO BID 14 Days #28 tablet metroNIDAZOLE [Flagyl] 500 mg PO TID 14 Days #42 tablet predniSONE [PredniSONE] 40 mg PO DAILY 14 Days #28 tablet Home Medications: FLUoxetine HCl [Fluoxetine HCl] 40 mg PO DAILY 05/04/18 [History] Pantoprazole Sodium 40 mg PO DAILY 05/04/18 [History] Ciprofloxacin [Cipro] 500 mg PO BID 14 Days #28 tablet 05/06/18 [Rx] metroNIDAZOLE [Flagyl] 500 mg PO TID 14 Days #42 tablet 05/06/18 [Rx] predniSONE [PredniSONE] 40 mg PO DAILY 14 Days #28 tablet 05/06/18 [Rx] Allergies/Adverse Reactions: 3 Allergy/AdvReac Type Severity Reaction Status Date / Time No Known Allergies Allergy Verified 11/13/17 15:39 Date of admission: 05/03/18 20:21 Primary care physician: Kathie Dodge MD Consults: 05/04/18 07:50 Consult to Gastroenterology [CONS] Routine Consulting Provider: Gastroenterology Kimberly Reason for Consult: Chrons flare Time Notified: 07:51 Call Completed: No - Constitutional Vitals: Temp Pulse Resp BP Pulse Ox 97.7 F 59 12 122/74 97 05/06/18 11:29 05/06/18 11:29 05/06/18 11:29 05/06/18 11:29 05/06/18 11:29 General appearance: Present: A&O X 3, obese, answers questions appropriately Exam: General: Alert and oriented HEENT:EOM, pupils equal, round, and reactive. Cardiovascular:Normal S1 & S2, no murmurs or gallops. No JVD. Pulse regular. Lungs:Normal breath sounds, no wheezes or crackles. Abdomen:Soft, non-tender, no rigidity. Extremities:No deformity, no edema or tenderness, no joint swelling. Neurological:Normal cognition and motor skills. Skin:Normal color, no rash, no lesions. Pulses:Carotid and radial pulses normal +2. Rest of the physical exam is non-contributory - Patient Status Disposition: Home, Self-Care Condition: Fair Functional capacity at discharge: independent ambulation Overall status at discharge: patient is back to baseline - Discharge Instructions Instructions: Sepsis (DC) Follow Up With: Kathie Dodge MD [Primary Care Provider] - Ismael Esquivel MD [Partnered Physician] - - Diet and Activity Activity: resume usual activities as tolerated Diet: advance to your usual diet
== END 2018-05-06 16:49 | disposition home or self-care (01) ==
LOC: EMEROO 16:09 → 3ANU 16:09 → SUATTDRO 20:21 → 3ANU 20:59
PROVIDERS: ADMIT Internal Medicine Nephrology; ATTEND Internal Medicine